=== PATIENT | male | born 1995 | race Two or more races ===

== ENCOUNTER 2019-11-05 14:44 | Emergency (ER) | payer MEDICAID, OTHER ==
[~2019-11-05] VITALS: Ht 175.3 cm; Wt 77.1 kg
[2019-11-05 16:00] LABS: Basophils # (auto) 0.1 10 ^3/uL (0-0.2); Eosinophils # (auto) 0 10 ^3/uL (0-0.8); Monocytes # (auto) 0.7 10 ^3/uL (0-1.3); Nucleated Red Blood Cells % 0.1 %
[2019-11-05 16:01] LABS: Basophils % (auto) 0.8 % (0.0-2.0); Eosinophils % (auto) 0.1 % (0.0-7.0); Hematocrit 52.1 % (41.0-53.0); Hemoglobin 17.9 g/dL (13.5-17.5); Lymphocytes # (auto) 1.7 10 ^3/uL (0.4-5.4); Lymphocytes % (auto) 14.6 % (10.0-50.0); Mean Corpuscular Hemoglobin 32.5 pg (28.0-32.0); Mean Corpuscular Hgb Conc. 34.3 g/dL (32.0-36.0); Mean Corpuscular Volume 94.9 fL (80.0-100.0); Monocytes % (auto) 5.5 % (0.0-12.0); Neutrophils # (auto) 9.4 10 ^3/uL (1.6-8.6); Platelet Count (auto) 285 10^3/uL (140-450); Red Cell Distribution Width 13.1 % (11.8-14.3); White Blood Cell 11.9 10^3/uL (4.4-10.8)
[2019-11-05 16:16] LABS: Albumin 4.8 g/dL (3.4-5.0); Calcium 10.2 mg/dL (8.5-10.1); Potassium 3.4 mmol/L (3.5-5.1)
[2019-11-05 16:21] LABS: BUN/Creatinine Ratio 21.6; Bilirubin, Total 0.9 mg/dL (0.2-1.0); Total Protein 8.3 g/dL (6.4-8.2)
[2019-11-05 17:41] LABS: Urine Bacteria NONE SEEN /hpf (None Seen); Urine Blood Negative /uL (Negative); Urine Mucus MODERATE (None Seen); Urine Specific Gravity 1.043 (1.001-1.035); Urine WBC 3 /hpf (0 - 3)
[2019-11-05] MEDS ORDERED: ONDANSETRON HCL 4 MG/2 ML VIAL IV ONE (20:00)
[2019-11-05] MEDS ORDERED: SODIUM CHLORIDE 0.9% 1,000 ML IV ONE ×2 (20:00→21:15)
[2019-11-05] MEDS ORDERED: ONDANSETRON HCL 4 MG/2 ML VIAL ONE (20:08)
[2019-11-05] MEDS ORDERED: PROMETHAZINE HCL 25 MG/ML 1ML IV ONE (20:45)
[2019-11-05] MEDS ORDERED: diphenhdrAMINE HCL 50 MG/1 ML VL IV ONE (20:45)
[2019-11-05] MEDS ORDERED: cefTRIAXone 1GM/50ML D5W 50 ML IV ONE ×2 (21:15→21:19)
[2019-11-05 21:21] VITALS: BP 128/89
== END 2019-11-05 22:25 | disposition home or self-care (01) ==
LOC: ER 14:44
DX: K52.9 Noninfective gastroenteritis and colitis, unspecified (principal); R11.2 Nausea with vomiting, unspecified; Z88.6 Allergy status to analgesic agent
CPT/HCPCS: 36415; 74176; 80053; 81001; 82550; 83690; 83874; 85025; 85652; 96361; 96365; 96375; 99284; J0696; J1200; J2405; J2550; J7030